=== PATIENT | male | born 1985 | race Caucasian/White ===

== ENCOUNTER 2018-05-10 05:15 | Emergency (ER) | payer MEDICAID ==
[~2018-05-10] VITALS: Ht 193 cm; Wt 68.0 kg
[~2018-05-10 05:15] MED LIST: CYCL-394 PO; HYDR1TAB PO; IBUP-1051 PO; TRAM50TA2 PO
[2018-05-10 05:18] VITALS: BP 131/77
[2018-05-10] MEDS ORDERED: SULF1TAB49 PO (05:30)
[2018-05-10] MEDS ORDERED: sulfamethoxazole/trimethoprim DS (800/160mg) tablet PO ONE (05:30)
[2018-05-10] MEDS ORDERED: DOXYCYCLINE 100MG CAPSULE PO STA (05:45)
[2018-05-10] MEDS ORDERED: ondansetron 4mg rapidly disintigrating tab PO ONE (05:45)
[2018-05-10] MEDS ORDERED: DOXY100C43 PO (05:46)
[2018-05-10] MEDS ORDERED: acetaminophen 325mg tablet PO STA (06:08)
== END 2018-05-10 06:19 | disposition home or self-care (01) ==
LOC: ER 05:15
DX: L02.31 Cutaneous abscess of buttock (principal); G89.29 Other chronic pain; M54.9 Dorsalgia, unspecified
CPT/HCPCS: 10061; 99284

== ENCOUNTER 2020-10-25 00:19 | Emergency (ER) | payer MEDICAID ==
[~2020-10-25] VITALS: Ht 190.5 cm; Wt 85.0 kg
[2020-10-25 00:22] VITALS: BP 111/70
[2020-10-25] MEDS ORDERED: SULF1TAB49 PO (02:12)
[2020-10-25] MEDS ORDERED: sulfamethoxazole/trimethoprim DS (800/160mg) tablet PO ONE (02:15)
[2020-10-25] MEDS ORDERED: TETanus/Pertussis (Acell)/Diphther VAC/PF (Tdap-Adult) 0.5ml syringe IMVAC ONE (02:15)
[2020-10-25] MEDS ORDERED: acetaminophen 325mg tablet PO ONE (02:15)
== END 2020-10-25 02:58 | disposition home or self-care (01) ==
LOC: ER 00:20
DX: S91.331A Puncture wound without foreign body, right foot, initial encounter (principal); L08.89 Other specified local infections of the skin and subcutaneous tissue; G89.29 Other chronic pain; W22.8XXA Striking against or struck by other objects, initial encounter; Y93.89 Activity, other specified; Y92.89 Other specified places as the place of occurrence of the external cause; Y99.9 Unspecified external cause status
CPT/HCPCS: 73630; 90471; 90715; 99283

== ENCOUNTER 2023-08-01 18:01 | Emergency (ER) | payer MEDICAID ==
[~2023-08-01] VITALS: Ht 193 cm; Wt 82.0 kg
[2023-08-01 18:10] VITALS: BP 100/59; PULSE 105; RESP 16; O2SAT 98
[2023-08-01 18:27] VITALS: TEMP 99.1
== END 2023-08-01 18:28 | disposition home or self-care (01) ==
LOC: ER 18:01
DX: Z00.8 Encounter for other general examination (principal); Z79.899 Other long term (current) drug therapy
CPT/HCPCS: 93005; 99283

== ENCOUNTER 2023-09-22 15:05 | Emergency (ER) | payer MEDICAID ==
[~2023-09-22] VITALS: Ht 193 cm; Wt 72.7 kg
[2023-09-22 15:12] VITALS: BP 124/80; PULSE 120; RESP 16; TEMP 98.9; O2SAT 97
[2023-09-22 15:50] LABS: BASOPHILS # (AUTO) 0.1 X10'3 (0-0.2); BASOPHILS % (AUTO) 0.4 % (0-1); EOSINOPHILS # (AUTO) 0.2 X10'3 (0-0.9); EOSINOPHILS % (AUTO) 1.4 % (0-6); HEMATOCRIT 48.5 % (42.0-52.0); HEMOGLOBIN 16.7 g/dl (14.0-17.9); LYMPHOCYTES # (AUTO) 3.1 X10'3 (1.1-4.8); LYMPHOCYTES % (AUTO) 27.1 % (21-51); MEAN CORPUSCULAR HEMOGLOBIN 29.7 PG (27.0-31.0); MEAN CORPUSCULAR HGB CONC 34.5 g/dL (33.0-36.5); MEAN CORPUSCULAR VOLUME 86.2 FL (78-98); MEAN PLATELET VOLUME 7.5 FL (7.4-10.4); MONOCYTES # (AUTO) 1.6 X10'3 (0-0.9); MONOCYTES % (AUTO) 14.2 % (2-12); NEUTROPHILS # (AUTO) 6.5 X10'3 (1.8-7.7); NEUTROPHILS % (AUTO) 56.9 % (42-75); PLATELET COUNT 359 X10'3 (140-440); RED BLOOD COUNT 5.62 X10'6 (4.70-6.10); RED CELL DISTRIBUTION WIDTH 14.5 % (11.5-14.5); WHITE BLOOD COUNT 11.4 X10'3 (4.5-11.0)
[2023-09-22 16:05] LABS: ALANINE AMINOTRANSFERASE 27 U/L (12-78); ALBUMIN 4.1 G/DL (3.4-5.0); ALBUMIN/GLOBULIN RATIO 0.9 (1.1-1.5); ALKALINE PHOSPHATASE 73 IU/L (46-116); ANION GAP 7 (8-16); ASPARTATE AMINO TRANSFERASE 13 U/L (10-37); BILIRUBIN,TOTAL 0.6 MG/DL (0.1-1.0); BLOOD UREA NITROGEN 22 MG/DL (7-18); BUN/CREATININE RATIO 21.2 (10.0-20.0); CALCIUM 9.8 MG/DL (8.5-10.1); CHLORIDE 95 MMOL/L (99-107); CREATININE 1.04 MG/DL (0.60-1.10); GLUCOSE 117 MG/DL (70-104); LIPASE 25 U/L (16-77); POTASSIUM 3.2 MMOL/L (3.5-5.1); SODIUM 136 MMOL/L (135-145); TOTAL CARBON DIOXIDE 33.6 MMOL/L (24-32); TOTAL PROTEIN 8.5 G/DL (6.4-8.2); eCRCL 98 ML/MIN; eGFR 80 ML/MIN
== END 2023-09-23 01:57 | disposition left against medical advice (07) ==
LOC: ER 15:05
DX: R11.10 Vomiting, unspecified (principal); R68.83 Chills (without fever); Z53.21 Procedure and treatment not carried out due to patient leaving prior to being seen by health care provider
CPT/HCPCS: 36415; 80053; 83690; 85025

== ENCOUNTER 2024-04-16 20:39 | Emergency (ER) | payer MEDICAID ==
[~2024-04-16] VITALS: Ht 193 cm; Wt 74.7 kg
[2024-04-16] MEDS ORDERED: BENZ-38 PO (22:24)
[2024-04-16] MEDS ORDERED: AZIT250T83 PO (22:24)
[2024-04-16] MEDS: CefTRIAXone 1000mg IM Kit (w/lidocaine diluent) IM ONE (22:26)
[2024-04-16 22:34] VITALS: BP 102/62; PULSE 95; RESP 15; TEMP 98.6; O2SAT 96
== END 2024-04-16 22:37 | disposition home or self-care (01) ==
LOC: ER 20:40
DX: J18.9 Pneumonia, unspecified organism (principal); G89.29 Other chronic pain; M54.9 Dorsalgia, unspecified
CPT/HCPCS: 71045; 96372; 99283; J0696

== ENCOUNTER 2024-07-29 08:20 | Emergency (ER) | payer MEDICAID ==
[~2024-07-29] VITALS: Ht 185.4 cm; Wt 81.8 kg
[2024-07-29 08:24] VITALS: TEMP 98.2
[2024-07-29 08:42] LABS: BASOPHILS # (AUTO) 0.2 X10'3 (0-0.2); BASOPHILS % (AUTO) 1.1 % (0-1); EOSINOPHILS # (AUTO) 0.3 X10'3 (0-0.9); EOSINOPHILS % (AUTO) 1.8 % (0-6); HEMATOCRIT 37.2 % (42.0-52.0); HEMOGLOBIN 12.4 g/dl (14.0-17.9); LYMPHOCYTES # (AUTO) 3.2 X10'3 (1.1-4.8); LYMPHOCYTES % (AUTO) 22.9 % (21-51); MEAN CORPUSCULAR HEMOGLOBIN 28.1 PG (27.0-31.0); MEAN CORPUSCULAR HGB CONC 33.3 g/dL (33.0-36.5); MEAN CORPUSCULAR VOLUME 84.6 FL (78-98); MONOCYTES # (AUTO) 1.2 X10'3 (0-0.9); MONOCYTES % (AUTO) 8.7 % (2-12); NEUTROPHILS # (AUTO) 9.1 X10'3 (1.8-7.7); NEUTROPHILS % (AUTO) 65.5 % (42-75); PLATELET COUNT 360 X10'3 (140-440); RED CELL DISTRIBUTION WIDTH 14.9 % (11.5-14.5); WHITE BLOOD COUNT 13.9 X10'3 (4.5-11.0)
[2024-07-29 08:57] LABS: ALANINE AMINOTRANSFERASE 23 U/L (12-78); ALBUMIN 3.8 G/DL (3.4-5.0); ALBUMIN/GLOBULIN RATIO 1.1 (1.1-1.5); ALKALINE PHOSPHATASE 81 IU/L (46-116); ANION GAP 8 (8-16); ASPARTATE AMINO TRANSFERASE 25 U/L (10-37); BILIRUBIN,TOTAL 0.5 MG/DL (0.1-1.0); BLOOD UREA NITROGEN 26 MG/DL (7-18); BUN/CREATININE RATIO 21.8 (10.0-20.0); CALCIUM 8.9 MG/DL (8.5-10.1); CHLORIDE 103 MMOL/L (99-107); CREATININE 1.19 MG/DL (0.60-1.10); GLUCOSE 139 MG/DL (70-104); POTASSIUM 3.6 MMOL/L (3.5-5.1); SODIUM 138 MMOL/L (135-145); TOTAL CARBON DIOXIDE 27.1 MMOL/L (24-32); TOTAL PROTEIN 7.2 G/DL (6.4-8.2); eCRCL 93 ML/MIN; eGFR 68 ML/MIN
[2024-07-29 09:05] LABS: MAGNESIUM 2.1 MG/DL (1.5-2.4); PRO BRAIN NATRIURETIC PEPTIDE 30 PG/ML (0-125)
[2024-07-29] MEDS: LORazepam 1 MG tablet PO ONE (09:06)
[2024-07-29] MEDS: aspirin 81mg tab.chew PO ONE (09:06)
[2024-07-29 09:13] LABS: ETHANOL < 10 MG/DL (<10)
[2024-07-29 09:58] VITALS: BP 162/78; PULSE 97; RESP 17; O2SAT 100
[2024-07-29 10:10] LABS: BILIRUBIN,URINE NEGATIVE (Neg); COLOR,URINE YELLOW (Yellow); GLUCOSE, URINE NEGATIVE (Neg); KETONES,URINE NEGATIVE (Neg); LEUKOCYTE ESTERASE ,URINE NEGATIVE (Neg); OCCULT BLOOD,URINE NEGATIVE (Neg); PROTEIN,URINE NEGATIVE (Neg); UROBILINOGEN,URINE 0.2 E.U/dL (0.2-1.0)
[2024-07-29 10:23] LABS: URINE AMPHETAMINE SCREEN POSITIVE (Neg); URINE BARBITUATE SCREEN NEGATIVE (Neg); URINE BENZODIAZEPINES SCREEN NEGATIVE (Neg); URINE CANNABINOID SCREEN NEGATIVE (Neg); URINE COCAINE SCREEN NEGATIVE (Neg); URINE METHADONE SCREEN NEGATIVE (Neg); URINE OPIATE SCREEN NEGATIVE (Neg); URINE PHENCYCLIDINE SCREEN NEGATIVE (Neg)
[2024-07-29 10:31] LABS: UA COLLECTION TYPE VOIDED
[2024-07-29 10:32] LABS: NITRITES, URINE NEGATIVE (Neg)
[2024-07-29 10:33] LABS: CLARITY,URINE SLIGHTLY CLOUDY (Clear)
[2024-07-29 10:34] LABS: SQUAMOUS EPITHELIAL CELL,UR FEW /LPF (FEW)
[2024-07-29 10:35] LABS: MUCUS STRANDS FEW /LPF (Neg)
[2024-07-29 10:38] LABS: WBC,URINE 0-4 /HPF (0-4)
[2024-07-29 10:39] LABS: RBC,URINE NONE SEEN /HPF (0-2)
[2024-07-29 10:40] LABS: BACTERIA,URINE FEW /HPF (Neg); CAL OXALATE CRYSTALS 2+ /HPF (NEGATIVE)
== END 2024-07-29 10:01 ==
LOC: ER 08:21
DX: Z79.899 Other long term (current) drug therapy (principal); R07.89 Other chest pain; G89.29 Other chronic pain; M54.9 Dorsalgia, unspecified; F41.9 Anxiety disorder, unspecified; F17.200 Nicotine dependence, unspecified, uncomplicated; F15.90 Other stimulant use, unspecified, uncomplicated; F11.90 Opioid use, unspecified, uncomplicated; Z79.1 Long term (current) use of non-steroidal anti-inflammatories (NSAID)
CPT/HCPCS: 36415; 71045; 80053; 80305; 80320; 81001; 83735; 83880; 84484; 85025; 93005; 99285